=== PATIENT | male | born 1995 | race Two or more races ===

== ENCOUNTER 2020-08-11 16:59 | Emergency (ER) | payer SELFPAY ==
[~2020-08-11] VITALS: Ht 193 cm; Wt 90.0 kg
[2020-08-11 17:04] VITALS: BP 115/83
[2020-08-11] MEDS ORDERED: ONDA4TAB5 MT (17:19)
[2020-08-11] MEDS ORDERED: IBUP-2029 MT (17:21)
== END 2020-08-11 17:43 | disposition home or self-care (01) ==
LOC: ER 16:59
DX: U07.1 COVID-19 (principal)
CPT/HCPCS: 99283